=== PATIENT | male | born 1945 | race Caucasian/White ===

== ENCOUNTER 2017-06-28 08:29 | Day surgery (SDC) | payer MEDICARE, BC ==
[~2017-06-28 08:29] MED LIST: LIDOCAINE HCL 1% MPF SOL ONE; PROPOFOL 500 MG/50 ML EMU IV ONE
[2017-06-28 10:57] VITALS: BP 105/87; PULSE 75; RESP 20; TEMP 97.7; O2SAT 97
== END 2017-06-28 11:25 | disposition home or self-care (01) | DRG 951 ==
LOC: SURG 08:29
PROVIDERS: ATTEND Surgery
DX: Z12.11 Encounter for screening for malignant neoplasm of colon (principal); K57.30 Diverticulosis of large intestine without perforation or abscess without bleeding; Z80.0 Family history of malignant neoplasm of digestive organs; Z86.010 Personal history of colon polyps
CPT/HCPCS: J2001; J2704

== ENCOUNTER 2018-03-10 15:29 | Outpatient (CLI) | payer MEDICARE, BC ==
[2017-06-28 10:57] VITALS: O2SAT 97
== END 2018-03-10 15:30 | disposition home or self-care (01) | DRG 556 ==
LOC: CONVCARE 15:29
PROVIDERS: ATTEND Orthopaedic Surgery
DX: M79.645 Pain in left finger(s) (principal)
CPT/HCPCS: 73110; 73130

== ENCOUNTER 2018-03-31 11:05 | Day surgery (SDC) | payer MEDICARE, BC ==
[2018-03-31] MEDS ORDERED: BUPIVACAINE/EPI 0.5% 10 ML SOL INFIL ONE (11:16)
[2018-03-31] MEDS ORDERED: FENTANYL 100MCG/2ML SOL ONE (11:36)
[2018-03-31] MEDS ORDERED: PROPOFOL 500 MG/50 ML EMU IV ONE ×2 (11:36→13:44)
[2018-03-31] MEDS ORDERED: MIDAZOLAM 2 MG/2 ML SOL ONE (11:36)
[2018-03-31] MEDS ORDERED: CEFAZOLIN SODIUM 1 GM PDS ONE (13:07)
[2018-03-31] MEDS ORDERED: EPHEDRINE SULFATE 50 MG/ML SOL ONE (14:08)
[2018-03-31 15:43] VITALS: O2SAT 92
[2018-03-31 16:08] VITALS: BP 102/71; PULSE 72; RESP 12; TEMP 97.6
== END 2018-03-31 16:25 | disposition home or self-care (01) | DRG 563 ==
LOC: SURG 11:05
PROVIDERS: ATTEND Orthopaedic Surgery
DX: S66.012A Strain of long flexor muscle, fascia and tendon of left thumb at wrist and hand level, initial encounter (principal)
CPT/HCPCS: J0690; J2250; J3010; A6402; J2704; J3490